=== PATIENT | female | born 1980 ===

== ENCOUNTER → 2020-08-21 | Outpatient (CLI) | payer OTHER | END | disposition home or self-care (01) | LOC: PRENATAL 15:00 | PROVIDERS: ATTEND Obstetrics & Gynecology Maternal & Fetal Medicine | DX: O35.0XX2 Maternal care for (suspected) central nervous system malformation in fetus, fetus 2 (principal); O30.92 Multiple gestation, unspecified, second trimester; O09.512 Supervision of elderly primigravida, second trimester; O44.02 Complete placenta previa NOS or without hemorrhage, second trimester; O99.891 Other specified diseases and conditions complicating pregnancy; O35.3XX1 Maternal care for (suspected) damage to fetus from viral disease in mother, fetus 1; O98.512 Other viral diseases complicating pregnancy, second trimester; Z36.89 Encounter for other specified antenatal screening; Z3A.19 19 weeks gestation of pregnancy ==

== ENCOUNTER 2023-09-20 09:28 | Outpatient (CLI) | payer OTHER | END 2023-09-20 09:47 | disposition home or self-care (01) | LOC: RX STUDY 09:28 | PROVIDERS: ATTEND Obstetrics & Gynecology Gynecology | DX: N80.129 Deep endometriosis of ovary, unspecified ovary (principal); N80.2 Endometriosis of fallopian tube ==